=== PATIENT | female | born 1940 | race Hispanic/Latino ===

== ENCOUNTER → 2018-05-14 | Outpatient (CLI) | payer SELFPAY | END | disposition home or self-care (01) | LOC: OIH 13:33 | PROVIDERS: ATTEND Internal Medicine Cardiovascular Disease | DX: Z13.6 Encounter for screening for cardiovascular disorders (principal) | CPT/HCPCS: 75571 ==

== ENCOUNTER 2025-05-25 07:09 | Day surgery (SDC) | payer OTHER ==
[~2025-05-25] VITALS: Ht 152.4 cm; Wt 70.3 kg
[2025-05-25] VITALS (11 sets, daily range): BP systolic 117–176; BP diastolic 51–75; PULSE 46–59; RESP 14–17; TEMP 96.9–97.4
[2025-05-25] MEDS ORDERED: MIDAZOLAM HCL 1 MG/ML 2ML VIAL ONE (07:23)
[2025-05-25] MEDS ORDERED: TORS20TA4 PO (08:32)
[2025-05-25] MEDS ORDERED: FAMO40TA7 PO (08:32)
[2025-05-25] MEDS ORDERED: APIX5TAB PO (08:32)
[2025-05-25] MEDS ORDERED: ASPI-1005 PO (08:32)
[2025-05-25] MEDS ORDERED: ISOS30TA92 PO (08:32)
[2025-05-25] MEDS ORDERED: FERS325 PO (08:32)
[2025-05-25] MEDS ORDERED: METF-444 PO ×2 (08:32)
[2025-05-25] MEDS ORDERED: SIMV-46 PO (08:32)
[2025-05-25] MEDS ORDERED: SERT-438 PO (08:32)
[2025-05-25] MEDS ORDERED: METO-408 PO (08:32)
[2025-05-25] MEDS ORDERED: LOSA100T59 PO (08:32)
[2025-05-25] MEDS: 0.9%NACL 1000ML 1,000 ML IV ONE (08:33)
[2025-05-25] MEDS ORDERED: GLYCOPYRROLATE 0.2 MG/ML 5 ML VIAL ONE (09:35)
[2025-05-25] MEDS ORDERED: NEOSTIGMINE METHYLSULFATE 1MG/ML IV ONE (09:35)
== END 2025-05-25 10:50 | disposition home or self-care (01) ==
LOC: DAH 07:09 → ENDO 07:09
PROVIDERS: ATTEND Internal Medicine Gastroenterology
DX: R12 Heartburn (principal); K29.50 Unspecified chronic gastritis without bleeding; K31.89 Other diseases of stomach and duodenum; K22.89 Other specified disease of esophagus; K44.9 Diaphragmatic hernia without obstruction or gangrene; R14.0 Abdominal distension (gaseous); I10 Essential (primary) hypertension; E11.9 Type 2 diabetes mellitus without complications; F41.9 Anxiety disorder, unspecified; I48.20 Chronic atrial fibrillation, unspecified; R68.81 Early satiety; F32.A Depression, unspecified; Z90.49 Acquired absence of other specified parts of digestive tract; Z79.01 Long term (current) use of anticoagulants; Z79.82 Long term (current) use of aspirin; Z79.899 Other long term (current) drug therapy; Z90.710 Acquired absence of both cervix and uterus
CPT/HCPCS: 43239; 82948 ×2; J3010; J7030; J2704; J3490; J2710; A4620; A4215; J2250; J2405